=== PATIENT | male | born 1965 | race Caucasian/White ===

== ENCOUNTER 2016-07-05 07:47 | Day surgery (SDC) | payer BC ==
--- NOTE | ~2016-07-05 | EGD ---
EGD REPORT [facility] [address] [id number] NAME: BILLY THOMSON : [birth year] STATUS : REG [facility]#: [id number] AGE: 50 ADM/REG DATE : 07/05/16 MR#: [id number] REPORT SERV DATE: 07/05/16 DICTATED BY: RENETTA FOSS DATE: 07/05/16 REPORT STATUS : Draft TRANSCRIBED BY: [facility] DATE: 07/05/16 [facility] Center Patient Name: Billy Thomson Date of : 1965 Attending MD: RENETTA FOSS MD Procedure Date No Time: 07/05/2016 Procedure: Colonoscopy Indications: Personal history of ulcerative colitis Referring MD: RAMESH DOBBINS Medicines: as per anesthesia Complications: No immediate complications. Procedure: Pre-Anesthesia Assessment: - ASA Grade Assessment: II - A patient with mild systemic disease. After I obtained informed consent, the scope was passed under direct vision. Throughout the procedure, the patient's blood pressure, pulse, and oxygen saturations were monitored continuously. The PCF [id number] was introduced through the anus and advanced to the cecum, identified by appendiceal orifice and ileocecal valve. The colonoscopy was performed without difficulty. The patient tolerated the procedure. The quality of the bowel preparation was adequate to identify polyps. Findings: The perianal and digital rectal examinations were normal. no active colitis Four biopsies were obtained in the rectum, in the sigmoid colon, in the descending colon, in the proximal transverse colon, in the distal transverse colon, in the ascending colon and in the cecum with cold forceps for histology. Impression: - Four biopsies were obtained in the rectum, in the sigmoid colon, in the descending colon, in the proximal transverse colon, in the distal transverse colon, in the ascending colon and in the cecum. Recommendation: - Await pathology results. - Repeat colonoscopy for surveillance based on pathology results. Procedure Code(s): --- Professional --- 33400, Colonoscopy, flexible, proximal to splenic flexure; with biopsy, single or multiple EGD REPORT [facility] [address]. [id number] NAME: BILLY THOMSON : [birth year] STATUS : REG [facility]#: [id number] AGE: 50 ADM/REG DATE : 07/05/16 MR#: [id number] REPORT SERV DATE: 07/05/16 DICTATED BY: RENETTA FOSS. DATE: 07/05/16 REPORT STATUS : Draft TRANSCRIBED BY: [employer] DATE: 07/05/16 Diagnosis Code(s): --- Professional --- Z87.19, Personal history of other diseases of the digestive system CPT copyright 2013 [employer]. All rights reserved. The codes documented in this report are preliminary and upon protective signal installer helper review may be revised to meet current compliance requirements. RENETTA FOSS MD 07/05/2016 9:06 AM This report has been signed electronically. Number of Addenda: 0 Note Initiated On: 07/05/2016 8:22 AM Scope Withdrawal Time 0 hours 18 minutes 21 seconds [id number] [id number]
[~2016-07-05 07:47] MED LIST: ACET500CAP PO; APRISO0.375 GM PO; DENIES HOME MED; REMICADE IV
== END 2016-07-05 23:59 | disposition home or self-care (01) ==
LOC: DMU 07:47
PROVIDERS: Internal Medicine Gastroenterology
PROC: 0DBH8ZX Excision of Cecum, Via Natural or Artificial Opening Endoscopic, Diagnostic (ICD-10-PCS; 2016-07-05)
PROC: 0DBK8ZX Excision of Ascending Colon, Via Natural or Artificial Opening Endoscopic, Diagnostic (ICD-10-PCS; 2016-07-05)
PROC: 0DBL8ZX Excision of Transverse Colon, Via Natural or Artificial Opening Endoscopic, Diagnostic (ICD-10-PCS; 2016-07-05)
PROC: 0DBM8ZX Excision of Descending Colon, Via Natural or Artificial Opening Endoscopic, Diagnostic (ICD-10-PCS; 2016-07-05)
PROC: 0DBN8ZX Excision of Sigmoid Colon, Via Natural or Artificial Opening Endoscopic, Diagnostic (ICD-10-PCS; 2016-07-05)
PROC: 0DBP8ZX Excision of Rectum, Via Natural or Artificial Opening Endoscopic, Diagnostic (ICD-10-PCS; principal; 2016-07-05 09:00)
DX: K52.9 Noninfective gastroenteritis and colitis, unspecified (principal); L30.9 Dermatitis, unspecified; N20.0 Calculus of kidney; Z79.899 Other long term (current) drug therapy; Z98.52 Vasectomy status; Z98.890 Other specified postprocedural states
CPT/HCPCS: 88305